=== PATIENT | male | born 1990 | race Caucasian/White ===

== ENCOUNTER 2019-05-15 18:18 | Emergency (ER) | payer BC, SELFPAY ==
[2019-05-15 18:19] VITALS: BP 154/95; PULSE 65; RESP 15; TEMP 37; O2SAT 97; BMI 30.7
--- NOTE | 2019-05-15 20:00 | US_ITS ---
STUDY: SCROTUM ULTRASOUND REASON FOR EXAM: Male, 28 years old. Left testicular pain. TECHNIQUE: Ultrasound evaluation of the scrotum was performed with color Doppler and static churchill-scale imaging. COMPARISON: None. FINDINGS: RIGHT TESTICLE INTRATESTICULAR: There is a normal size of the right testicle. The right testicle measures 4.9 x 3.4 x 3.3 cm. There is a homogenous echotexture. There is normal arterial and normal venous vascularity. There is no demonstrated right testicular mass or cyst. EXTRATESTICULAR: The epididymis is normal in size. There is normal vascularity of the epididymis. There is no demonstrated epididymal cystic structure. There is a small hydrocele. There is no demonstrated varicocele. There is no demonstrated extratesticular mass or cyst. LEFT TESTICLE INTRATESTICULAR: There is a normal size of the left testicle. The left testicle measures 2.3 x 1.7 x 1.2 cm. There is a homogenous echotexture. There is normal arterial and normal venous vascularity. There is no demonstrated left testicular mass or cyst. EXTRATESTICULAR: The epididymis is normal in size. There is normal vascularity of the epididymis. There is no demonstrated epididymal cystic structure. There is a small hydrocele. There is no demonstrated varicocele. There is no demonstrated extratesticular mass or cyst. US/Testicular with Arterial Flow IMPRESSION: Testicular size asymmetry with the right greater than left. Small bilateral hydroceles. Electronically Signed: Liz Thayer MD at 21:41 EDT Tel , Service support ,
--- NOTE | 2019-05-15 20:06 | ED.DCSUM_ITS ---
- ER Visit Summary Date of Service: 05/15/19 Chief Complaint: Left testicle pain History of Present Illness: The patient is a 28 M presenting with left testicle pain. This started approximately 5 hours ago. Patient states he stood up from the couch and had pain in his left testicle that radiated upwards. He has not had these symptoms in the past. He denies other complaints. Physical Examination: Vitals are stable. Patient is afebrile. Alert no acute distress. HEENT exam is unremarkable. Lungs are clear and equal bilaterally. Heart is regular rate and rhythm. Abdomen is soft nontender nondistended. No guarding or rebound. Left testicle tenderness slightly improved with elevation. Left testicle chronically smaller than right. Extremities are unremarkable. Skin is warm and dry. Remainder of exam is unremarkable. Emergency Department Course and Treatment: Patient was given Tylenol. Testicular ultrasound shows Testicular size asymmetry with the right greater than left. Small bilateral hydroceles. CT flank shows no acute findings in the abdomen or pelvis. Specifically there is no acute appendicitis or diverticulitis. No abnormal findings in both groins. On reevaluation, patient is resting comfortably. He has no concern for STD. He is advised to follow-up with his primary care physician. Advised return to ED if worsening complaints. Disposition: Discharged home Impression: Groin strain This note was generated with [employer] dictation software. It may contain incorrect words, spelling, and punctuation that were not noted in review of the chart prior to signing ED Disposition - Plan for ED Patient: Instructions: Groin Strain Referrals: Saurabh Haines MD [Primary Care Provider] -
[2019-05-15] MEDS: Acetaminophen 500 MG Tablet 1000 MG PO (20:24)
[2019-05-15 20:29] VITALS: BP 146/91; PULSE 52; RESP 16; O2SAT 99
[2019-05-15 22:19] VITALS: BP 146/95; PULSE 62; RESP 16; O2SAT 98
--- NOTE | 2019-05-15 22:53 | CT_ITS ---
STUDY: CT ABDOMEN AND PELVIS WITHOUT CONTRAST REASON FOR EXAM: Male, 28 years old. Left testicle and groin pain RADIATION DOSAGE (If Supplied By Facility): CTDIvol = ( 7.85 ) mGy, DLP = ( 446.18 ) mGycm TECHNIQUE: Transaxial images were obtained from the dome of the diaphragm to the symphysis pubis without oral contrast, and without intravenous contrast. Sagittal and coronal images were reconstructed. Individualized dose optimization techniques were used for this CT. COMPARISON: None. FINDINGS: The lung bases are clear. The liver is normal. No dilated intrahepatic biliary radicles. The gallbladder is normal with no calcifications within it. There is no pericholecystic fluid collection or streakiness The spleen is normal. The pancreas is normal. Both adrenals are normal. The kidneys are normal with no masses, calculi or hydronephrosis The stomach is normal. There is no bowel distention, acute appendicitis or diverticulitis. No constricting lesions are seen in large bowel. The abdominal wall is intact with no hernias. There is no ascites or any free intraperitoneal air. No indication of epiploic appendagitis The vascular structures in the retroperitoneum are normal. There is no retrocrural, retroperitoneal or mesenteric adenopathy. The bones and joints are normal. The urinary bladder is normal.--The prostate is normal. There is no inguinal or pelvic adenopathy. There is no inguinal hernia. CT/Abdomen/Pelvis without Cont IMPRESSION: No acute findings in the abdomen or pelvis. Specifically there is no acute appendicitis or diverticulitis. No abnormal findings in both groins Electronically Signed: Corey Jean Baptiste MD at 0:14 EDT Tel , Service support ,
[2019-05-15] MEDS: Ibuprofen 600 MG Tablet PO (23:24)
--- NOTE | 2019-05-16 00:48 | ED.DEP ---
ED Disposition - Plan for ED Patient: Instructions: Luli Jesus Referrals: Saurabh Haines MD [Primary Care Provider] -
[2019-05-16 01:12] VITALS: BP 140/90; PULSE 58; RESP 16; O2SAT 98
== END 2019-05-16 01:16 | disposition home or self-care (01) ==
LOC: ED 20:24
PROVIDERS: Emergency Provider Emergency Medicine; Family Provider Family Medicine; PCP Family Medicine
DX: S39.011A Strain of muscle, fascia and tendon of abdomen, initial encounter (principal); X50.9XXA Other and unspecified overexertion or strenuous movements or postures, initial encounter; Y93.89 Activity, other specified; Y92.008 Other place in unspecified non-institutional (private) residence as the place of occurrence of the external cause; Y99.8 Other external cause status
CPT/HCPCS: 74176; 76870; 93976; 99283